=== PATIENT | male | born 1980 | race Caucasian/White ===

== ENCOUNTER 2016-12-06 10:30 | Emergency (ER) | payer OTHER ==
[~2016-12-06] VITALS: Ht 162.6 cm; Wt 95.5 kg
[2016-12-06 10:37] VITALS: Ht 162.6 cm; Wt 95.5 kg
--- NOTE | 2016-12-06 12:08 | RADRPT ---
PROCEDURE: Right foot series. CLINICAL INDICATION: Right foot pain and numbness. TECHNIQUE: Three views of the right foot are available for review. COMPARISON: None available FINDINGS: There is normal mineralization and alignment of the bones of the right foot. Lisfranc's joint appea rs intact. No acute fracture or dislocation is seen. The soft tissues are unremarkable. IMPRESSION: 1. Unremarkable right foot series. RPTAT: KK .Zafar Patton MD, MD Date Time Electronically viewed and signed by .Zafar Patton MD, on 12/06/2016 12:08 .B/
--- NOTE | 2016-12-06 12:09 | RADRPT ---
PROCEDURE: Lumbar spine series CLINICAL INDICATION: Back pain TECHNIQUE: Three views of the lumbar spine are available for review COMPARISON: None available FINDINGS: There is mild nonspecific straightening of the normal lumbar lordosis. Alignment is otherwise intac t. No acute fracture or dislocation is seen. Vertebral body heights are well maintained. Interverte bral disk heights are well maintained. Paraspinous soft tissues are grossly unremarkable. IMPRESSION: 1. Mild nonspecific straightening of the normal lumbar lordosis. 2. Otherwise unremarkable lumbar spine series RPTAT: KK .Zafar Patton MD, MD Date Time Electronically viewed and signed by .Zafar Patton MD, on 12/06/2016 12:08 .B/
[2016-12-06] MEDS ORDERED: IBUP-1542 PO (12:21)
[2016-12-06] MEDS ORDERED: PRED20TA PO (12:21)
--- NOTE | 2016-12-06 12:27 | ERD ---
ER Documentation Chief Complaint Date/Time DATE: 12/06/16 TIME: 12:26 Chief Complaint right foot numbness x 4 days, no injury, no other complaint HPI This 36-year-old male complains of some numbness in the dorsum of his right foot for last 4 days. May have started with an awkward movement at work. Denies any back pain, weakness, bowel or bladder incontinence, fevers, history of trauma. ROS All systems reviewed and are negative except as per history of present illness. Medications Home Meds Active Scripts Prednisone* (Prednisone*) 20 Mg Tab, 40 MG PO DAILY for 4 Days, TAB Prov:YOUNG BHAKTA MD 12/06/16 Ibuprofen* (Motrin*) 600 Mg Tab, 600 MG PO Q6, #20 TAB Prov:YOUNG BHAKTA MD 12/06/16 Allergies Allergies: Coded Allergies: No Known Allergy (Verified , 03/29/13) PMhx/Soc History of Surgery: Yes (l.shoulder) Anesthesia Reaction: No Hx Neurological Disorder: No Hx Respiratory Disorders: No Hx Cardiac Disorders: No Hx Psychiatric Problems: No Hx Miscellaneous Medical Probl: No Hx Alcohol Use: No Hx Substance Use: No Hx Tobacco Use: No Physical Exam Vitals Vital Signs Date Time Temp Pulse Resp B/P Pulse Ox O2 Delivery O2 Flow Rate FiO2 12/06/16 10:37 98.0 92 18 131/74 97 Physical Exam Const: [] Alert, [id number] per Head: Atraumatic Eyes: Normal Conjunctiva ENT: Normal External Ears, Nose and Mouth. Neck: Full range of motion..~ No meningismus. Resp: Clear to auscultation bilaterally Cardio: Regular rate and rhythm, no murmurs Abd: Soft, non tender, non distended. Normal bowel sounds Skin: No petechiae or rashes Back: No midline or flank tenderness. No appreciable lumbar tenderness. Ext: No cyanosis, or edema. No different deformities, warmth, erythema, ambulatory without deficits or weakness. Neur: Awake and alert Psych: Normal Mood and Affect Procedures/MDM X-ray right foot 3V Interpreted by me: Bones: [No fracture] Joints: [No dislocation] Foreign body: [None]. Patient has a normal right foot x-ray X-ray LS-Spine 3V Interpreted by me: Bones: [No fracture] Joints: [No dislocation] Foreign body: [None]. Impression normal lumbar spine x-ray Patient presents with paresthesias right foot of uncertain etiology. He may have sciatica for local nerve impingement. There is no signs or symptoms of neurologic deficit, cellulitis, central lesions. Able to the short course prednisone ibuprofen and further observation at home. The patient was stable with no new complaints during the ER course. Clinically, there is no current evidence to suggest meningitis, sepsis, acute abdomen, pneumonia, acute coronary syndrome, pulmonary embolism, or any other emergent condition appearing to require further evaluation or hospitalization. The patient should certainly return for any new or worsening symptoms per the aftercare instructions. They should otherwise follow-up with her primary care doctor for reevaluation this week. Departure Diagnosis: Primary Impression: Right leg paresthesias Condition: Stable Patient Instructions: Paraesthesias [facility] Daren se sahu hecho un examen mdico de control que le indica que no est en sulma condicin que requiera tratamiento urgente en el Departamento de Emergencia. Un estudio ms profundo y el tratamiento de ware condicin pueden esperar sin ningn riesgo hasta que usted sea atendida/o en el consultorio de ware mdico o sulma cl heidi. Es responsabilidad suya arreglar sulma ayse para el seguimiento del leanne. MANEJO DE CONDICIONES NO URGENTES EN EL FUTURO 1) Si usted tiene un mdico de atencin primaria: Usted debera llamar a ware mdico de atencin primaria antes de venir al departamento de emergencia. Despus de las horas de consultorio, ware doctor o ware asociado/a est disponible por telfono. El mdico o enfermero de jessica en el servicio telefnico puede asesorarle por mckayla medio para atender el problema, o leanne contrario se puede programar sulma ayse. 2) Si usted no tiene un mdico de atencin primaria: Llame al mdico o clnica de referencia que aparece abajo helene las horas de consultorio para hacer sulma ayse para que le vean. CLINICAS: [facility] [phone] [id number] [facility] [phone] [id number] [facility] [phone] [address] [facility] [phone] [place] [phone] [facility] [phone] [address] Additional Instructions: Examines normal hoy. Cheque otro vez con ware doctor primario en el proximo jenkins or regresa para mas o nueva simptomas. YOUNG BHAKTA MD December 06, 2016 12:27
== END 2016-12-06 12:35 | disposition home or self-care (01) ==
LOC: FTE 10:30
DX: R20.2 Paresthesia of skin (principal)
CPT/HCPCS: 72100; 73630; Z7502

== ENCOUNTER 2017-08-16 12:54 | Emergency (ER) | END 2017-08-16 17:26 | disposition home or self-care (01) ==

== ENCOUNTER 2017-11-30 21:45 | Emergency (ER) | END 2017-12-01 03:54 | disposition home or self-care (01) ==

== ENCOUNTER 2019-05-15 21:33 | Emergency (ER) | payer MEDICAID, OTHER ==
[~2019-05-15] VITALS: Ht 165.1 cm; Wt 100.7 kg
[~2019-05-15 21:33] MED LIST: ACET500C5 PO; HYDR50TA15 PO; IBUP-1542 PO; PHEN30SP8 MM; PRED20TA PO; PSEU30TA38 PO
[2019-05-15 21:37] VITALS: BP 143/86; PULSE 47; RESP 20; Ht 165.1 cm; Wt 100.7 kg
== END 2019-05-15 23:30 | disposition home or self-care (01) ==
LOC: FTE 21:33
DX: T16.1XXA Foreign body in right ear, initial encounter (principal); X58.XXXA Exposure to other specified factors, initial encounter; Y92.9 Unspecified place or not applicable
CPT/HCPCS: 69200; Z7502